=== PATIENT | female | born 1985 | race Caucasian/White ===

== ENCOUNTER 2017-02-12 07:32 | Inpatient (IN) | payer OTHER ==
[2017-02-12] MEDS ORDERED: Sodium Chloride 0.9% 10 ML Syringe FLUSH PRN (07:51)
[2017-02-12] MEDS ORDERED: Nalbuphine 20 MG/1 ML Amp IVPUSH PRN (07:51)
[2017-02-12] MEDS ORDERED: Ondansetron 4 MG/2 ML SDV IVPUSH PRN (07:51)
[2017-02-12] MEDS ORDERED: Lidocaine 1% 50 ML MDV INJECT ONE (07:51)
[2017-02-12] MEDS ORDERED: Oxytocin/Lactated Ringers 10 UNIT/1,000 ML BAG IV SCH (08:00)
[2017-02-12] MEDS: Lactated Ringers 1,000 ML IV SCH ×4 (08:35→23:31)
[2017-02-12] MEDS ORDERED: diphenhydrAMINE 50 MG/ML SDV IVPUSH PRN (08:43)
[2017-02-12] MEDS ORDERED: fentaNYL 100 MCG/2 ML SDV EPIDUR PRN (08:43)
[2017-02-12] MEDS ORDERED: ePHEDrine 50 MG/ML SDV IVPUSH PRN (08:43)
[2017-02-12] MEDS: Bupivacaine/fentaNYL/NS 100 ML Bag EPIDUR SCH ×3 (09:05→23:34)
--- NOTE | 2017-02-12 09:17 | PCM.PREANE ---
Preanesthetic Assessment - Anesthesia/Transfusion/Family Hx Anesthesia History: Prior Anesthesia Without Reaction Family History of Anesthesia Reaction: No Transfusion History: No Prior Transfusion(s) - Review of Systems General: No Symptoms Pulmonary: No Symptoms Cardiovascular: No Symptoms Gastrointestinal: No Symptoms Neurological: No Symptoms Other: Reports: None - Physical Assessment Pulse: 108 O2 Sat by Pulse Oximetry: 100 Respiratory Rate: 16 Blood Pressure: 122/45 Temperature: 36.6 C Vital Signs: Last Vital Signs Temp 36.7 C 02/12/17 07:51 Pulse 108 H 02/12/17 08:30 Resp 16 02/12/17 07:51 BP 138/87 02/12/17 07:51 Pulse Ox 100 02/12/17 07:51 Height: 1.6 m Weight: 78.018 kg ASA Class: 2 Mental Status: Alert & Oriented x3 Airway Class: Mallampati = 1 Dentition: Reports: Normal Dentition Thyro-Mental Finger Breadths: 3 Mouth Opening Finger Breadths: 3 ROM/Head Extension: Full Lungs: Clear to Auscultation, Normal Respiratory Effort Cardiovascular: Regular Rate, Regular Rhythm, No Murmurs - Lab Values: Laboratory Last Values WBC 15.97 K/mm3 (3.98-10.04) H 02/12/17 08:10 RBC 3.86 M/mm3 (3.98-5.22) L 02/12/17 08:10 Hgb 11.7 gm/L (11.2-15.7) 02/12/17 08:10 Hct 34.1 % (34.1-44.9) 02/12/17 08:10 MCV 88.3 fl (79.4-94.8) 02/12/17 08:10 MCH 30.3 pg (25.6-32.2) 02/12/17 08:10 MCHC 34.3 g/dl (32.2-35.5) 02/12/17 08:10 RDW Std Deviation 43.5 fL (36.4-46.3) 02/12/17 08:10 Plt Count 260 K/mm3 (182-369) 02/12/17 08:10 MPV 10.0 fl (9.4-12.3) 02/12/17 08:10 Neut % (Auto) 82.3 % (34.0-71.1) H 02/12/17 08:10 Lymph % (Auto) 10.3 % (19.3-51.7) L 02/12/17 08:10 [place] % (Auto) 5.8 % (4.7-12.5) 02/12/17 08:10 Eos % (Auto) 0.3 (0.7-5.8) L 02/12/17 08:10 Baso % (Auto) 0.1 % (0.1-1.2) 02/12/17 08:10 Neut # (Auto) 13.16 K/mm3 (1.56-6.13) H 02/12/17 08:10 Lymph # (Auto) 1.64 K/mm3 (1.18-3.74) 02/12/17 08:10 [place] # (Auto) 0.92 K/mm3 (0.24-0.36) H 02/12/17 08:10 Eos # (Auto) 0.04 K/mm3 (0.04-0.36) 02/12/17 08:10 Baso # (Auto) 0.02 K/mm3 (0.01-0.08) 02/12/17 08:10 Manual Slide Review Normal smear 02/12/17 08:10 - Allergies Allergies/Adverse Reactions: Allergies Allergy/AdvReac Type Severity Reaction Status Date / Time No Known Allergies Allergy Verified 02/12/17 07:56 - Anesthesia Plan Pre-Op Medication Ordered: None - Acknowledgements Anesthesia Type Planned: Epidural Pt an Appropriate Candidate for the Planned Anesthesia: Yes Alternatives and Risks of Anesthesia Discussed w Pt/Guardian: Yes Pt/Guardian Understands and Agrees with Anesthesia Plan: Yes PreAnesthesia Questionnaire Gastrointestinal History: Reports: GERD - CURRENT (IN HOUSE) MEDS Current Meds: Current Medications Diphenhydramine HCl (Benadryl) 25 mg IVPUSH Q6H PRN PRN Reason: Itching Ephedrine Sulfate (Ephedrine Sulfate) 5 mg IVPUSH ASDIRECTED PRN PRN Reason: HYPOTENTSION Fentanyl (Sublimaze) 100 mcg EPIDUR Q3H PRN PRN Reason: PAIN Last Admin: 02/12/17 09:05 Dose: 100 mcg Fentanyl/Bupivacaine HCl (Fentanyl/Bupivacaine/Ns 2 Mcg-0.125% 100 Ml) 100 ml EPIDUR ASDIRECTED [facility] Last Admin: 02/12/17 09:05 Dose: 100 ml Lactated Ringer's (Ringers, Lactated) 1,000 mls @ 100 mls/hr IV ASDIRECTED [facility] Last Admin: 02/12/17 08:35 Dose: 500 mls/hr Oxytocin/Lactated Ringer's (Pitocin In Lr 10 Units/1,000 Ml) 10 unit in 1,000 mls @ 12 mls/hr IV TITRATE CASSIDY; 2 MUNITS/MIN PRN Reason: Protocol Oxytocin 20 unit/ Lactated (Ringer's) 1,002 mls @ 1,503 mls/hr IV TITRATE C[facility]IDY PRN Reason: 500 MUNITS/MIN Nalbuphine HCl (Nubain) 10 mg IVPUSH Q2H PRN PRN Reason: Pain (moderate 4-6) Ondansetron HCl (Zofran) 4 mg IVPUSH Q4H PRN PRN Reason: Nausea/Vomiting Sodium Chloride (Saline Flush) 10 ml FLUSH ASDIRECTED PRN PRN Reason: Keep Vein Open Discontinued Medications Lidocaine HCl (Xylocaine 1%) 1 ml INJECT ONETIME ONE Stop: 02/12/17 07:52
--- NOTE | 2017-02-12 10:54 | PCM.LDHP ---
<Doreen Lee - Last Filed: 02/12/17 11:15> L&D History of Present Illness - General Date of Service: 02/12/17 Admit Problem/Dx: Patient Status Order with Admit Dx/Problem 02/12/17 07:51 Patient Status [ADT] Routine Admission Diagnosis/Problem Admission Diagnosis/Problem Source of Information: Patient History Limitations: Reports: No Limitations - History of Present Illness Introduction:: Patient is 31 yo , 37 5/7 wks gestation that presents for induction of labor. BRODERICK 02/28/17. GBS-, blood type B+ antibody negative. She had routine care with Dr. Perez. Patient has a history of endometriosis and is currently taking prozac 40 mg once per day for her depression/anxiety. She is in no acute distress. She reports have episodes of diarrhea and vomiting this morning. On examination she has slow capillary refill and her lips are dry and cracked indicating possible dehydration. Pelvic exam revealed 100% effaced, mid- anterior, soft and 3-4 cm dilated cervix. Rest of physical exam was unremarkable Location, : Reports: Uterus - Related Data Allergies/Adverse Reactions: Allergies Allergy/AdvReac Type Severity Reaction Status Date / Time No Known Allergies Allergy Verified 02/12/17 07:56 Home Medications: Home Meds FLUoxetine [PROzac] 40 mg PO BEDTIME 02/12/17 [History] PNV95/Ferrous Fumarate/FA [ Tablet] 1 tab PO DAILY 02/12/17 [History] Past Medical History HEENT History: Reports: Other (See Below) Other HEENT History: glasses Gastrointestinal History: Reports: GERD [employer] History: Reports: Endometriosis, Other (See Below) : 1 Para: 0 ( ) LMP (Approximate): Other OB/BYN History: laparoscopy Psychiatric History: Reports: Anxiety, Depression - Past Surgical History HEENT Surgical History: Reports: None Other Female Surgeries/Procedures: Lap Diag (endometriosis) 2007 Social & Family History - Tobacco Use Smoking Status *Q: Never Smoker Second Hand Smoke Exposure: No - Recreational Drug Use Recreational Drug Use: No H&P Review of Systems - Review of Systems: Review Of Systems: See Below General: Reports: No Symptoms HEENT: Reports: No Symptoms Pulmonary: Reports: No Symptoms Cardiovascular: Reports: No Symptoms Gastrointestinal: Reports: Diarrhea, Vomiting (Reports vomiting twice this morning of 02/12/17) Genitourinary: Reports: No Symptoms Musculoskeletal: Reports: No Symptoms Skin: Reports: No Symptoms Psychiatric: Reports: No Symptoms Neurological: Reports: No Symptoms Hematologic/Lymphatic: Reports: No Symptoms Immunologic: Reports: No Symptoms L&D Exam - Exam Exam: See Below - Vital Signs Vital Signs: Last Vital Signs Temp 97.9 F 02/12/17 09:17 Pulse 108 H 02/12/17 09:17 Resp 16 02/12/17 09:17 BP 122/45 L 02/12/17 09:17 Pulse Ox 100 02/12/17 09:17 Weight: 172 lb - Dangelo Score Dangelo Score Cervix Position: Midposition Dangelo Score Consistency: Soft Dangelo Score Effacement: >80% Dangelo Score Dilation: 3-4 cm Dangelo Score 's Station: -1 ,0 Dangelo Score Total: 10 - Exam General: Alert, Oriented HEENT: Conjunctiva Clear, Mucosa Moist & [place], Posterior Pharynx Clear, Pupils Equal Neck: Supple, Trachea Midline Lungs: Clear to Auscultation, Normal Respiratory Effort Cardiovascular: Regular Rate, Regular Rhythm Rectal Exam: Deferred Genitourinary: Normal external exam, Normal bimanual exam Back Exam: Normal Inspection Extremities: Normal Inspection, Normal Range of Motion, Non-Tender, No Pedal Edema, Slow Capillary Refill Skin: Warm, Dry (Patients lips are dry and cracked), Intact Psychiatric: Alert, Normal Affect, Normal Mood - Patient Data Lab Results Last 24 hrs: Laboratory Results - last 24 hr 02/12/17 Range/Units 08:10 WBC 15.97 H (3.98-10.04) K/mm3 RBC 3.86 L (3.98-5.22) M/mm3 Hgb 11.7 (11.2-15.7) gm/L Hct 34.1 (34.1-44.9) % MCV 88.3 (79.4-94.8) fl MCH 30.3 (25.6-32.2) pg MCHC 34.3 (32.2-35.5) g/dl RDW Std Deviation 43.5 (36.4-46.3) fL Plt Count 260 (182-369) K/mm3 MPV 10.0 (9.4-12.3) fl Neut % (Auto) 82.3 H (34.0-71.1) % Lymph % (Auto) 10.3 L (19.3-51.7) % [place] % (Auto) 5.8 (4.7-12.5) % Eos % (Auto) 0.3 L (0.7-5.8) Baso % (Auto) 0.1 (0.1-1.2) % Neut # (Auto) 13.16 H (1.56-6.13) K/mm3 Lymph # (Auto) 1.64 (1.18-3.74) K/mm3 [place] # (Auto) 0.92 H (0.24-0.36) K/mm3 Eos # (Auto) 0.04 (0.04-0.36) K/mm3 Baso # (Auto) 0.02 (0.01-0.08) K/mm3 Manual Slide Review Normal smear Result Diagrams: 02/12/17 08:10 Problem List Initiated/Reviewed/Updated: No Orders Last 24hrs: Active Orders 24 hr Category Date Time Status Patient Status [ADT] Routine ADT 02/12/17 07:51 Active Activity as Tolerated [RC] PFP Care 02/12/17 07:51 Active Communication Order [RC] ASDIRECTED Care 02/12/17 07:51 Active Communication Order [RC] ASDIRECTED Care 02/12/17 08:43 Active Notify Provider [RC] ASDIRECTED Care 02/12/17 08:43 Active Notify Provider [RC] PFP Care 02/12/17 07:51 Active Notify Provider [RC] PRN Care 02/12/17 07:51 Active Peripheral IV Care [RC] . DIRECTED Care 02/12/17 07:51 Active Pump Management, Intrathecal [RC] ASDIRECTED Care 02/12/17 07:52 Active Vital Signs [RC] PER UNIT ROUTINE Care 02/12/17 07:51 Active Regular Diet [DIET] Diet 02/12/17 Breakfast Active Bupivacaine/fentaNYL/NS [fentaNYL/Bupivacaine/NS 2 MCG- Med 02/12/17 08:45 Active 0.125% 100 ML] 100 ml EPIDUR ASDIRECTED Lactated Ringers [Ringers, Lactated] 1,000 ml Med 02/12/17 08:00 Active IV ASDIRECTED Nalbuphine [Nubain] Med 02/12/17 07:51 Active 10 mg IVPUSH Q2H PRN Ondansetron [Zofran] Med 02/12/17 07:51 Active 4 mg IVPUSH Q4H PRN Oxytocin [Pitocin] 20 unit Med 02/12/17 08:00 Active Lactated Ringers [Ringers, Lactated] 1,000 ml IV TITRATE Oxytocin/Lactated Ringers [Pitocin in LR 10 Units/1,000 Med 02/12/17 08:00 Active ML] 10 unit in 1,000 ml IV TITRATE Sodium Chloride 0.9% [Saline Flush] Med 02/12/17 07:51 Active 10 ml FLUSH ASDIRECTED PRN diphenhydrAMINE [Benadryl] Med 02/12/17 08:43 Active 25 mg IVPUSH Q6H PRN ePHEDrine [ePHEDrine Sulfate] Med 02/12/17 08:43 Active 5 mg IVPUSH ASDIRECTED PRN fentaNYL [Sublimaze] Med 02/12/17 08:43 Active 100 mcg EPIDUR Q3H PRN Electronic Heart Tones Ext w TOCO [WOMSER] Oth 02/12/17 07:51 Ordered Routine Electronic Heart Tones Internal [WOMSER] Per Unit Oth 02/12/17 07:51 Ordered Routine Peripheral IV Insertion Adult [OM.PC] Routine Oth 02/12/17 07:51 Ordered Resuscitation Status Routine Resus Stat 02/12/17 07:51 Ordered Medication Orders Diphenhydramine HCl (Benadryl) 25 mg IVPUSH Q6H PRN PRN Reason: Itching Ephedrine Sulfate (Ephedrine Sulfate) 5 mg IVPUSH ASDIRECTED PRN PRN Reason: HYPOTENTSION Fentanyl (Sublimaze) 100 mcg EPIDUR Q3H PRN PRN Reason: PAIN Last Admin: 02/12/17 09:05 Dose: 100 mcg Fentanyl/Bupivacaine HCl (Fentanyl/Bupivacaine/Ns 2 Mcg-0.125% 100 Ml) 100 ml EPIDUR ASDIRECTED [facility] Last Admin: 02/12/17 09:05 Dose: 100 ml Lactated Ringer's (Ringers, Lactated) 1,000 mls @ 100 mls/hr IV ASDIRECTED [facility] Last Admin: 02/12/17 08:35 Dose: 500 mls/hr Oxytocin/Lactated Ringer's (Pitocin In Lr 10 Units/1,000 Ml) 10 unit in 1,000 mls @ 12 mls/hr IV TITRATE CASSIDY; 2 MUNITS/MIN PRN Reason: Protocol Oxytocin 20 unit/ Lactated (Ringer's) 1,002 mls @ 1,503 mls/hr IV TITRATE CASSIDY PRN Reason: 500 MUNITS/MIN Nalbuphine HCl (Nubain) 10 mg IVPUSH Q2H PRN PRN Reason: Pain (moderate 4-6) Ondansetron HCl (Zofran) 4 mg IVPUSH Q4H PRN PRN Reason: Nausea/Vomiting Sodium Chloride (Saline Flush) 10 ml FLUSH ASDIRECTED PRN PRN Reason: Keep Vein Open Assessment/Plan Comment:: Patient is a 31 yo , 37 5/7 wks gestation that presents for induction of labor. BRODERICK 02/28/17. GBS-, blood type B+ antibody negative. She had routine care with Dr. Perez. Patient has a history of endometriosis and is currently taking prozac 40 mg once per day for her depression/anxiety. She is in no acute distress. She reports have episodes of diarrhea and vomiting this morning. On examination she has slow capillary refill and her lips are dry and cracked indicating possible dehydration. Pelvic exam revealed 100% effaced, mid- anterior, soft and 3-4 cm dilated cervix. Rest of physical exam was unremarkable. Labs reveal elevated WBC count of 15.97 Plan: Continue monitoring Reassess possible dehydration <Mohamud Barnes - Last Filed: 02/12/17 16:38> L&D History of Present Illness - General Admit Problem/Dx: Patient Status Order with Admit Dx/Problem 02/12/17 07:51 Patient Status [ADT] Routine Admission Diagnosis/Problem Admission Diagnosis/Problem Source of Information: Patient History Limitations: Reports: No Limitations - History of Present Illness Introduction:: Seen and examined by me and discussed with student. Past Medical History [employer] History: Reports: Endometriosis, Other (See Below) LMP (Approximate): H&P Review of Systems - Review of Systems: Review Of Systems: See Below General: Reports: No Symptoms HEENT: Reports: No Symptoms Pulmonary: Reports: No Symptoms Cardiovascular: Reports: No Symptoms Gastrointestinal: Reports: No Symptoms Genitourinary: Reports: No Symptoms Musculoskeletal: Reports: No Symptoms Skin: Reports: No Symptoms Psychiatric: Reports: No Symptoms Neurological: Reports: No Symptoms Hematologic/Lymphatic: Reports: No Symptoms Immunologic: Reports: No Symptoms L&D Exam - Exam Exam: See Below - Vital Signs Vital Signs: Last Vital Signs Temp 97.9 F 02/12/17 09:17 Pulse 108 H 02/12/17 09:17 Resp 16 02/12/17 09:17 BP 122/45 L 02/12/17 09:17 Pulse Ox 100 02/12/17 09:17 - OB Specific Fundal Height In cm: 37 Contraction Duration (sec): 30 Contraction Frequency (min): 5 Contraction Intensity: Mild to Moderate Movement: Active Heart Tones: Present Heart Tones per Min: 140 Heart Rate (FHR) Variability: Moderate (6-25 bmp) Presentation: Vertex - Dangelo Score Dangelo Score Cervix Position: Midposition Dangelo Score Consistency: Soft Dangelo Score Effacement: >80% Dangelo Score Dilation: 3-4 cm Dangelo Score 's Station: -1 ,0 Dangelo Score Total: 10 - Exam General: Alert, Oriented HEENT: PERRLA, Conjunctiva Clear, EACs Clear, EOMI, Hearing Intact, Mucosa Moist & [place], Nares Patent, Normal Nasal Septum, Posterior Pharynx Clear, TMs Clear Neck: Supple, Trachea Midline Lungs: Clear to Auscultation, Normal Respiratory Effort Cardiovascular: Regular Rate, Regular Rhythm GI/Abdominal Exam: Normal Bowel Sounds, Soft, Non-Tender Rectal Exam: Deferred Genitourinary: Normal external exam, Normal bimanual exam, Normal speculum exam Back Exam: Normal Inspection Extremities: Normal Inspection, Normal Range of Motion, Non-Tender, No Pedal Edema Skin: Warm, Dry, Intact Neurological: Cranial Nerves Intact, Reflexes Equal Bilateral Psychiatric: Alert, Normal Affect, Normal Mood - Patient Data Lab Results Last 24 hrs: Laboratory Results - last 24 hr 02/12/17 Range/Units 08:10 WBC 15.97 H (3.98-10.04) K/mm3 RBC 3.86 L (3.98-5.22) M/mm3 Hgb 11.7 (11.2-15.7) gm/L Hct 34.1 (34.1-44.9) % MCV 88.3 (79.4-94.8) fl MCH 30.3 (25.6-32.2) pg MCHC 34.3 (32.2-35.5) g/dl RDW Std Deviation 43.5 (36.4-46.3) fL Plt Count 260 (182-369) K/mm3 MPV 10.0 (9.4-12.3) fl Neut % (Auto) 82.3 H (34.0-71.1) % Lymph % (Auto) 10.3 L (19.3-51.7) % [place] % (Auto) 5.8 (4.7-12.5) % Eos % (Auto) 0.3 L (0.7-5.8) Baso % (Auto) 0.1 (0.1-1.2) % Neut # (Auto) 13.16 H (1.56-6.13) K/mm3 Lymph # (Auto) 1.64 (1.18-3.74) K/mm3 [place] # (Auto) 0.92 H (0.24-0.36) K/mm3 Eos # (Auto) 0.04 (0.04-0.36) K/mm3 Baso # (Auto) 0.02 (0.01-0.08) K/mm3 Manual Slide Review Normal smear Result Diagrams: 02/12/17 08:10 - Problem List (1) 37 weeks gestation of SNOMED Code(s): 85668636 ICD Code: Z3A.37 - 37 WEEKS GESTATION OF Status: Acute Current Visit: Yes Problem List Initiated/Reviewed/Updated: No Orders Last 24hrs: Active Orders 24 hr Category Date Time Status Patient Status [ADT] Routine ADT 02/12/17 07:51 Active Activity as Tolerated [RC] PFP Care 02/12/17 07:51 Active Communication Order [RC] ASDIRECTED Care 02/12/17 07:51 Active Communication Order [RC] ASDIRECTED Care 02/12/17 08:43 Active Notify Provider [RC] ASDIRECTED Care 02/12/17 08:43 Active Notify Provider [RC] PFP Care 02/12/17 07:51 Active Notify Provider [RC] PRN Care 02/12/17 07:51 Active Peripheral IV Care [RC] . DIRECTED Care 02/12/17 07:51 Active Pump Management, Intrathecal [RC] ASDIRECTED Care 02/12/17 07:52 Active Vital Signs [RC] PER UNIT ROUTINE Care 02/12/17 07:51 Active Regular Diet [DIET] Diet 02/12/17 Breakfast Active Bupivacaine/fentaNYL/NS [fentaNYL/Bupivacaine/NS 2 MCG- Med 02/12/17 08:45 Active 0.125% 100 ML] 100 ml EPIDUR ASDIRECTED Lactated Ringers [Ringers, Lactated] 1,000 ml Med 02/12/17 08:00 Active IV ASDIRECTED Nalbuphine [Nubain] Med 02/12/17 07:51 Active 10 mg IVPUSH Q2H PRN Ondansetron [Zofran] Med 02/12/17 07:51 Active 4 mg IVPUSH Q4H PRN Oxytocin [Pitocin] 20 unit Med 02/12/17 08:00 Active Lactated Ringers [Ringers, Lactated] 1,000 ml IV TITRATE Oxytocin/Lactated Ringers [Pitocin in LR 10 Units/1,000 Med 02/12/17 08:00 Active ML] 10 unit in 1,000 ml IV TITRATE Sodium Chloride 0.9% [Saline Flush] Med 02/12/17 07:51 Active 10 ml FLUSH ASDIRECTED PRN diphenhydrAMINE [Benadryl] Med 02/12/17 08:43 Active 25 mg IVPUSH Q6H PRN ePHEDrine [ePHEDrine Sulfate] Med 02/12/17 08:43 Active 5 mg IVPUSH ASDIRECTED PRN fentaNYL [Sublimaze] Med 02/12/17 08:43 Active 100 mcg EPIDUR Q3H PRN Electronic Heart Tones Ext w TOCO [WOMSER] Oth 02/12/17 07:51 Ordered Routine Electronic Heart Tones Internal [WOMSER] Per Unit Oth 02/12/17 07:51 Ordered Routine Peripheral IV Insertion Adult [OM.PC] Routine Oth 02/12/17 07:51 Ordered Resuscitation Status Routine Resus Stat 02/12/17 07:51 Ordered Medication Orders Diphenhydramine HCl (Benadryl) 25 mg IVPUSH Q6H PRN PRN Reason: Itching Ephedrine Sulfate (Ephedrine Sulfate) 5 mg IVPUSH ASDIRECTED PRN PRN Reason: HYPOTENTSION Fentanyl (Sublimaze) 100 mcg EPIDUR Q3H PRN PRN Reason: PAIN Last Admin: 02/12/17 09:05 Dose: 100 mcg Fentanyl/Bupivacaine HCl (Fentanyl/Bupivacaine/Ns 2 Mcg-0.125% 100 Ml) 100 ml EPIDUR ASDIRECTED [facility] Last Admin: 02/12/17 09:05 Dose: 100 ml Lactated Ringer's (Ringers, Lactated) 1,000 mls @ 100 mls/hr IV ASDIRECTED [facility] Last Admin: 02/12/17 11:26 Dose: 500 mls/hr Infusion: 02/12/17 10:35 Dose: 500 mls/hr Admin: 02/12/17 08:35 Dose: 500 mls/hr Oxytocin/Lactated Ringer's (Pitocin In Lr 10 Units/1,000 Ml) 10 unit in 1,000 mls @ 12 mls/hr IV TITRATE CASSIDY; 2 MUNITS/MIN PRN Reason: Protocol Oxytocin 20 unit/ Lactated (Ringer's) 1,002 mls @ 1,503 mls/hr IV TITRATE CASSIDY PRN Reason: 500 MUNITS/MIN Nalbuphine HCl (Nubain) 10 mg IVPUSH Q2H PRN PRN Reason: Pain (moderate 4-6) Ondansetron HCl (Zofran) 4 mg IVPUSH Q4H PRN PRN Reason: Nausea/Vomiting Sodium Chloride (Saline Flush) 10 ml FLUSH ASDIRECTED PRN PRN Reason: Keep Vein Open Assessment/Plan Comment:: Seen and examined by me and discussed with student.
--- NOTE | 2017-02-12 15:47 | PCM.SN ---
- Free Text/Narrative Note: 1535 called for bolus level at T11 bolus with 10ml of 25% bupivicaine PF VSS out room at 1549
--- NOTE | 2017-02-12 16:50 | PCM.SN ---
- Free Text/Narrative Note: Cervix is 6 cm dilated with contraction, 90-100% effaced, soft, mid position, vertex at +1 station. Category 1 heart rate.
--- NOTE | 2017-02-12 19:02 | PCM.SN ---
- Free Text/Narrative Note: 6 cm dilated and continue augmentation.
[2017-02-13] MEDS ORDERED: Lidocaine 1% 50 ML MDV ONE (05:15)
[2017-02-13] MEDS ORDERED: Misoprostol 200 MCG Tab ONE (05:27)
--- NOTE | 2017-02-13 05:46 | PCM.DEL ---
L & D Note - General Info Date of Service: 02/13/17 Mother's Due Date: 02/28/17 - Delivery Note Labor: Spontaneous, Augmented by Oxytocin Delivery Outcome: Livebirth (Male liveborn Monday02/13/17 0520 hrs. SETH over midline episiotomy nuchal cord times one compound presentation right hand side head Apgars 4/7/9 at one and 5 and 10 minutes respectively. Weight 3600 g 7 lbs. 15 oz.) Infant Delivery Mode: Spontaneous Presentation: Right Occiput Anterior (BEENA) Nuchal Cord: Present (Tight) Prep: Povidone-Iodine (Betadine Anesthesia Type: Local, Epidural Anesthetic: Lidocaine (Xylocaine) 1% Plain Local Anesthetic Volume: 4cc Amniotic Fluid Description: Clear Episiotomy Type: Midline Laceration: None Suture type: Other (Monocryl) Suture size: 3-0 (2) Placenta: Intact, Spontaneous (Delivered at 0523 hrs. examined intact Pearson discarded) Cord: 3 Vessels Estimated Blood Loss: 500 Resuscitation Needed: Yes [place]: Suctioned, Bulb Syringe, Cathether, Stimulated, Warmed, [place] Used, Warmer Used Provider: Mohamud Barnes Score 1 min: 4 Score 5 min: 7 Score 10 min: 9 - Patient Data Vitals - Most Recent: Last Vital Signs Temp 97.9 F 02/12/17 09:17 Pulse 107 H 02/12/17 17:00 Resp 16 02/12/17 09:17 BP 124/75 02/12/17 17:00 Pulse Ox 100 02/12/17 09:17 Weight - Most Recent: 172 lb Lab Results Last 24 Hours: Laboratory Results - last 24 hr 02/12/17 Range/Units 08:10 WBC 15.97 H (3.98-10.04) K/mm3 RBC 3.86 L (3.98-5.22) M/mm3 Hgb 11.7 (11.2-15.7) gm/L Hct 34.1 (34.1-44.9) % MCV 88.3 (79.4-94.8) fl MCH 30.3 (25.6-32.2) pg MCHC 34.3 (32.2-35.5) g/dl RDW Std Deviation 43.5 (36.4-46.3) fL Plt Count 260 (182-369) K/mm3 MPV 10.0 (9.4-12.3) fl Neut % (Auto) 82.3 H (34.0-71.1) % Lymph % (Auto) 10.3 L (19.3-51.7) % [place] % (Auto) 5.8 (4.7-12.5) % Eos % (Auto) 0.3 L (0.7-5.8) Baso % (Auto) 0.1 (0.1-1.2) % Neut # (Auto) 13.16 H (1.56-6.13) K/mm3 Lymph # (Auto) 1.64 (1.18-3.74) K/mm3 [place] # (Auto) 0.92 H (0.24-0.36) K/mm3 Eos # (Auto) 0.04 (0.04-0.36) K/mm3 Baso # (Auto) 0.02 (0.01-0.08) K/mm3 Manual Slide Review Normal smear Med Orders - Current: Current Medications Diphenhydramine HCl (Benadryl) 25 mg IVPUSH Q6H PRN PRN Reason: Itching Ephedrine Sulfate (Ephedrine Sulfate) 5 mg IVPUSH ASDIRECTED PRN PRN Reason: HYPOTENTSION Fentanyl (Sublimaze) 100 mcg EPIDUR Q3H PRN PRN Reason: PAIN Last Admin: 02/12/17 09:05 Dose: 100 mcg Fentanyl/Bupivacaine HCl (Fentanyl/Bupivacaine/Ns 2 Mcg-0.125% 100 Ml) 100 ml EPIDUR ASDIRECTED CASSIDY Last Admin: 02/12/17 23:34 Dose: 100 ml Lactated Ringer's (Ringers, Lactated) 1,000 mls @ 100 mls/hr IV ASDIRECTED CASSIDY Last Admin: 02/12/17 23:31 Dose: 125 mls/hr Oxytocin/Lactated Ringer's (Pitocin In Lr 10 Units/1,000 Ml) 10 unit in 1,000 mls @ 12 mls/hr IV TITRATE CASSIDY; 2 MUNITS/MIN PRN Reason: Protocol Oxytocin 20 unit/ Lactated (Ringer's) 1,002 mls @ 1,503 mls/hr IV TITRATE CASSIDY PRN Reason: 500 MUNITS/MIN Oxytocin 20 unit/ Lactated (Ringer's) 1,002 mls @ 3 mls/hr IV TITRATE CASSIDY; 1 MUNITS/MIN PRN Reason: Protocol Last Titration: 02/13/17 01:30 Dose: 11 munits/min, 33.06 mls/hr Nalbuphine HCl (Nubain) 10 mg IVPUSH Q2H PRN PRN Reason: Pain (moderate 4-6) Ondansetron HCl (Zofran) 4 mg IVPUSH Q4H PRN PRN Reason: Nausea/Vomiting Sodium Chloride (Saline Flush) 10 ml FLUSH ASDIRECTED PRN PRN Reason: Keep Vein Open Discontinued Medications Lidocaine HCl (Xylocaine 1%) 1 ml INJECT ONETIME ONE Stop: 02/12/17 07:52 Lidocaine HCl (Xylocaine 1%) Confirm Administered Dose 50 ml .ROUTE .STK-MED ONE Stop: 02/13/17 05:16 Misoprostol (Cytotec) Confirm Administered Dose 600 mcg .ROUTE .STK-MED ONE Stop: 02/13/17 05:28 - Problem List & Annotations (1) 37 weeks gestation of SNOMED Code(s): 95757278 Code(s): Z3A.37 - 37 WEEKS GESTATION OF Status: Acute Current Visit: Yes (2) First degree laceration of perineum, delivered, current hospitalization SNOMED Code(s): 518291850 Code(s): O70.0 - FIRST DEGREE PERINEAL LACERATION DURING DELIVERY Status: Acute Current Visit: Yes (3) Compound presentation, delivered, current hospitalization SNOMED Code(s): 839746562 Code(s): O32.6XX0 - MATERNAL CARE FOR COMPOUND PRESENTATION, UNSP Status: Acute Current Visit: Yes - Problem List Review Problem List Initiated/Reviewed/Updated: No - My Orders Last 24 Hours: My Active Orders 02/12/17 07:51 Patient Status [ADT] Routine Activity as Tolerated [RC] PFP Communication Order [RC] ASDIRECTED Notify Provider [RC] PFP Notify Provider [RC] PRN Peripheral IV Care [RC] . DIRECTED Vital Signs [RC] PER UNIT ROUTINE Nalbuphine [Nubain] 10 mg IVPUSH Q2H PRN Ondansetron [Zofran] 4 mg IVPUSH Q4H PRN Sodium Chloride 0.9% [Saline Flush] 10 ml FLUSH ASDIRECTED PRN Electronic Heart Tones Ext w TOCO [WOMSER] Routine Electronic Heart Tones Internal [WOMSER] Per Unit Routine Peripheral IV Insertion Adult [OM.PC] Routine Resuscitation Status Routine 02/12/17 07:52 Pump Management, Intrathecal [RC] ASDIRECTED 02/12/17 08:00 Lactated Ringers [Ringers, Lactated] 1,000 ml IV ASDIRECTED Oxytocin [Pitocin] 20 unit Lactated Ringers [Ringers, Lactated] 1,000 ml IV TITRATE Oxytocin/Lactated Ringers [Pitocin in LR 10 Units/1,000 ML] 10 unit in 1,000 ml IV TITRATE 02/12/17 20:00 Oxytocin [Pitocin] 20 unit Lactated Ringers [Ringers, Lactated] 1,000 ml IV TITRATE 02/12/17 Breakfast Regular Diet [DIET] - Plan Plan:: Seen and examined by me and discussed with student.
[2017-02-13] MEDS ORDERED: Ibuprofen 600 MG Tab PO PRN (05:50)
[2017-02-13] MEDS ORDERED: Lanolin 100% Cream 7 GM Tube TOP PRN (05:50)
[2017-02-13] MEDS ORDERED: Benzocaine/Menthol 20%-0.5% Spray 56 GM Canister TOP PRN (05:50)
[2017-02-13] MEDS ORDERED: Witch Hazel Medicated Pads 100/Jar TOP PRN (05:50)
--- NOTE | 2017-02-13 07:33 | PCM48HPAN ---
Post Anesthesia Note - EVALUATION WITHIN 48HRS OF ANESTHETIC Vital Signs in Normal Range: Yes Patient Participated in Evaluation: Yes Respiratory Function Stable: Yes Airway Patent: Yes Cardiovascular Function Stable: Yes Hydration Status Stable: Yes Pain Control Satisfactory: Yes Nausea and Vomiting Control Satisfactory: Yes Mental Status Recovered: Yes
[2017-02-13] MEDS: Prenatal Multivitamin with Calcium/Folic Acid/Iron Tab PO SCH (08:59)
[2017-02-13] MEDS: FLUoxetine 20 MG Cap PO SCH (21:12)
[2017-02-13] MEDS: Acetaminophen 325 MG Tab PO PRN (21:13)
[2017-02-13] MEDS ORDERED: Bupivacaine 0.25% 10 ML SDV ONE (22:22)
[2017-02-14] MEDS: Prenatal Multivitamin with Calcium/Folic Acid/Iron Tab PO SCH (09:45)
[2017-02-14] MEDS: Docusate Sodium 100 MG Cap PO PRN (09:45)
[2017-02-14] MEDS: Acetaminophen 325 MG Tab PO PRN ×2 (09:49→21:50)
--- NOTE | 2017-02-14 10:41 | PCM.SN ---
- Free Text/Narrative Note: Patient is afebrile chest clear no abnormal heart sounds. Abdomen is soft uterus involuting normally at U -1. No heavy vaginal bleeding cramping. Probably home tomorrow.
[2017-02-14] MEDS: FLUoxetine 20 MG Cap PO SCH (21:48)
--- NOTE | 2017-02-15 10:02 | PCM.SN ---
- Free Text/Narrative Note: Post Progress Note PPD # 2 Subjective: Doing well overall. Ambulating without difficulty. Lochia minimal. Voiding without difficulty. Tolerating regular diet. Pain controlled with oral medications. Breast feeding with minimal difficulty. Objective: Vitals: Last Vital Signs Temp 36.6 C 02/15/17 03:08 Pulse 71 02/15/17 03:08 Resp 17 02/15/17 03:08 BP 112/88 02/15/17 03:08 Pulse Ox 99 02/15/17 03:08 Physical Exam General: Alert and oriented, no acute distress Lungs: Clear to auscultation bilaterally Heart: Regular rate and rhythm Abdomen: Soft, minimal appropriate tenderness, non-distended, fundus midline, nontender, and below the umbilicus Extremities: No edema ASSESSMENT: 31-year-old female G 1 P 1001 s/p normal vaginal delivery PPD #2, complicated by history of anxiety/depression on medication, history of endometriosis, compound presentation during delivery with hand near the face, and midline episiotomy PLAN: Doing well Breast feeding with minimal difficulty. Assist as needed Lochia minimal. Continue to monitor for appropriate lochia. Continue routine care Anticipate discharge home today Hamzah Avina MD 10:00 AM 02/15/17
--- NOTE | 2017-02-15 10:06 | PCM.DCSUM1 ---
Discharge Summary - Hospital Course Free Text/Narrative:: Labor: Spontaneous, Augmented by Oxytocin Delivery Outcome: Livebirth (Male liveborn Monday02/13/17 0520 hrs. SETH over midline episiotomy nuchal cord times one compound presentation right hand side head Apgars 4/7/9 at one and 5 and 10 minutes respectively. Weight 3600 g 7 lbs. 15 oz.) Infant Delivery Mode: Spontaneous Presentation: Right Occiput Anterior (BEENA) Nuchal Cord: Present (Tight) Prep: Povidone-Iodine (Betadine Anesthesia Type: Local, Epidural Anesthetic: Lidocaine (Xylocaine) 1% Plain Local Anesthetic Volume: 4cc Amniotic Fluid Description: Clear Episiotomy Type: Midline Laceration: None Suture type: Other (Monocryl) Suture size: 3-0 (2) Placenta: Intact, Spontaneous (Delivered at 0523 hrs. examined intact Pearson discarded) Cord: 3 Vessels Estimated Blood Loss: 500 Resuscitation Needed: Yes [place]: Suctioned, Bulb Syringe, Cathether, Stimulated, Warmed, [place] Used, Warmer Used Provider: Mohamud Barnes Score 1 min: 4 Score 5 min: 7 Score 10 min: 9 HPI Initial Comments: Labor: Spontaneous, Augmented by Oxytocin Delivery Outcome: Livebirth (Male liveborn Monday02/13/17 0520 hrs. SETH over midline episiotomy nuchal cord times one compound presentation right hand side head Apgars 4/7/9 at one and 5 and 10 minutes respectively. Weight 3600 g 7 lbs. 15 oz.) Infant Delivery Mode: Spontaneous Presentation: Right Occiput Anterior (BEENA) Nuchal Cord: Present (Tight) Prep: Povidone-Iodine (Betadine Anesthesia Type: Local, Epidural Anesthetic: Lidocaine (Xylocaine) 1% Plain Local Anesthetic Volume: 4cc Amniotic Fluid Description: Clear Episiotomy Type: Midline Laceration: None Suture type: Other (Monocryl) Suture size: 3-0 (2) Placenta: Intact, Spontaneous (Delivered at 0523 hrs. examined intact Pearson discarded) Cord: 3 Vessels Estimated Blood Loss: 500 Resuscitation Needed: Yes [place]: Suctioned, Bulb Syringe, Cathether, Stimulated, Warmed, [place] Used, Warmer Used Provider: Mohamud Barnes Score 1 min: 4 Score 5 min: 7 Score 10 min: 9 Brief History: Labor: Spontaneous, Augmented by Oxytocin. Delivery Outcome: Livebirth (Male liveborn Monday02/13/17 0520 hrs. SETH over midline episiotomy nuchal cord times one compound presentation right hand side head Apgars 4/7/9 at one and 5 and 10 minutes respectively. Weight 3600 g 7 lbs. 15 oz.). Infant Delivery Mode: Spontaneous. Presentation: Right Occiput Anterior (BEENA). Nuchal Cord: Present (Tight). Prep: Povidone-Iodine (Betadine. Anesthesia Type : Local, Epidural. Anesthetic: Lidocaine (Xylocaine) 1% Plain. Local Anesthetic Volume: 4cc. Amniotic Fluid Description: Clear. Episiotomy Type: Midline. Laceration: None. Suture type: Other (Monocryl). Suture size: 3-0 ( 2). Placenta: Intact, Spontaneous (Delivered at 0523 hrs. examined intact Pearson discarded). Cord: 3 Vessels. Estimated Blood Loss: 500. Resuscitation Needed: Yes. : Suctioned, Bulb Syringe, Cathether, Stimulated, Warmed, [place] Used, Warmer Used. Provider: Mohamud Barnes. Score 1 min: 4. Score 5 min: 7. Score 10 min: 9 - Discharge Data Discharge Date: 02/15/17 Discharge Disposition: Home, Self-Care 01 Condition: Good - Discharge Diagnosis/Problem(s) (1) (normal spontaneous vaginal delivery) SNOMED Code(s): 06789320 ICD Code: O80 - ENCOUNTER FOR FULL-TERM UNCOMPLICATED DELIVERY Status: Acute (2) History of anxiety disorder SNOMED Code(s): 631170215 ICD Code: Z86.59 - PERSONAL HISTORY OF OTHER MENTAL AND BEHAVIORAL DISORDERS Status: Acute (3) History of endometriosis SNOMED Code(s): 039662191 ICD Code: Z87.42 - PERSONAL HISTORY OF OTH DISEASES OF THE FEMALE GENITAL TRACT Status: Acute (4) 37 weeks gestation of SNOMED Code(s): 04345139 ICD Code: Z3A.37 - 37 WEEKS GESTATION OF Status: Acute (5) Compound presentation, delivered, current hospitalization SNOMED Code(s): 613999870 ICD Code: O32.6XX0 - MATERNAL CARE FOR COMPOUND PRESENTATION, UNSP Status: Acute (6) First degree laceration of perineum, delivered, current hospitalization SNOMED Code(s): 782576104 ICD Code: O70.0 - FIRST DEGREE PERINEAL LACERATION DURING DELIVERY Status: Acute - Patient Summary/Data Operative Procedure(s) Performed: Midline episiotomy with repair of first- degree laceration Complications: Compound presentation during labor, ended with normal vaginal delivery Consults: None Hospital Course: Labor: Spontaneous, Augmented by Oxytocin Delivery Outcome: Livebirth (Male liveborn Monday02/13/17 0520 hrs. SETH over midline episiotomy nuchal cord times one compound presentation right hand side head Apgars 4/7/9 at one and 5 and 10 minutes respectively. Weight 3600 g 7 lbs. 15 oz.) Infant Delivery Mode: Spontaneous Presentation: Right Occiput Anterior (BEENA) Nuchal Cord: Present (Tight) Prep: Povidone-Iodine (Betadine Anesthesia Type: Local, Epidural Anesthetic: Lidocaine (Xylocaine) 1% Plain Local Anesthetic Volume: 4cc Amniotic Fluid Description: Clear Episiotomy Type: Midline Laceration: None Suture type: Other (Monocryl) Suture size: 3-0 (2) Placenta: Intact, Spontaneous (Delivered at 0523 hrs. examined intact Pearson discarded) Cord: 3 Vessels Estimated Blood Loss: 500 Resuscitation Needed: Yes : Suctioned, Bulb Syringe, Cathether, Stimulated, Warmed, [place] Used, Warmer Used Provider: Mohamud Barnes Score 1 min: 4 Score 5 min: 7 Score 10 min: 9 Patient was doing well on day #1 and meeting postoperative milestones including ambulating, tolerating regular diet, voiding without difficulty and her pain was well controlled with oral medications. She is breast-feeding without difficulty. On day #2 she continued be doing well and meeting all milestones. She desired to be discharged home in the morning of day #2. She was discharged home and will follow- up with Dr. Perez in 6 weeks or earlier as needed. - Patient Instructions Diet: Regular Diet as Tolerated Activity: As Tolerated Activity, Other: Nothing in the vagina for 6 weeks Driving: May Drive Today Showering/Bathing: May Shower, No Tub Bathing/Swimming Notify Provider of: Fever, Increased Pain, Swelling and Redness, Drainage, Nausea and/or Vomiting - Discharge Plan Home Medications: Home Meds FLUoxetine [PROzac] 40 mg PO BEDTIME 02/12/17 [History] PNV95/Ferrous Fumarate/FA [ Tablet] 1 tab PO DAILY 02/12/17 [History] Acetaminophen [Tylenol] 650 mg PO Q4H PRN tablet 02/15/17 [Rx] Benzocaine/Menthol [Dermoplast Pain Relief [place]] 1 spray TOP ASDIRECTED PRN canister 02/15/17 [Rx] Docusate Sodium [Colace] 100 mg PO BID PRN cap 02/15/17 [Rx] Ibuprofen [IJD: Ibuprofen] 600 mg PO Q6H PRN tablet 02/15/17 [Rx] Lanolin [Lansinoh HPA] 1 applic TOP ASDIRECTED PRN tube 02/15/17 [Rx] Witch Viviana [Tucks] 1 pad TOP ASDIRECTED PRN pad 02/15/17 [Rx] Patient Handouts: Home Care Instructions for Mom Referrals: Lisa Perez MD [Primary Care Provider] - (Follow-up in 6 weeks for visit.) - Discharge Summary/Plan Comment DC Time >30 min.: No - Patient Data Vitals - Most Recent: Last Vital Signs Temp 36.6 C 02/15/17 03:08 Pulse 71 02/15/17 03:08 Resp 17 02/15/17 03:08 BP 112/88 02/15/17 03:08 Pulse Ox 99 02/15/17 03:08 Weight - Most Recent: 78.018 kg I&O - Last 24 hours: Intake & Output 02/14/17 02/15/17 02/15/17 22:59 06:59 14:59 Intake Total 620 Balance 620 Med Orders - Current: Current Medications Acetaminophen (Tylenol) 650 mg PO Q4H PRN PRN Reason: mild pain or fever Last Admin: 02/14/17 21:50 Dose: 650 mg Benzocaine/Menthol (Dermoplast Pain Relief [place]) 0 gm TOP ASDIRECTED PRN PRN Reason: Perineal Comfort Measure Last Admin: 02/13/17 08:59 Dose: 1 spray Docusate Sodium (Colace) 100 mg PO BID PRN PRN Reason: Constipation Last Admin: 02/14/17 09:45 Dose: 100 mg Emollient Ointment (Lansinoh Hpa) 0 gm TOP ASDIRECTED PRN PRN Reason: Sore Nipples Fluoxetine HCl (Prozac) 40 mg PO BEDTIME CASSIDY Last Admin: 02/14/17 21:48 Dose: 40 mg Ibuprofen (Motrin) 600 mg PO Q4H PRN PRN Reason: Mild pain or fever Prenat Multivit/Incident Response Coordinator/Iron/Folic Ac ( Plus Iron) 1 each PO DAILY CASSIDY Last Admin: 02/14/17 09:45 Dose: 1 each Witch Viviana (Tucks) 1 pad TOP ASDIRECTED PRN PRN Reason: Hemorrhoid pain Last Admin: 02/13/17 08:59 Dose: 1 pad Discontinued Medications Bupivacaine HCl (Sensorcaine-Mpf 0.25%) 20 ml .ROUTE .[facility]-MED ONE Stop: 02/13/17 22:23 Diphenhydramine HCl (Benadryl) 25 mg IVPUSH Q6H PRN PRN Reason: Itching Ephedrine Sulfate (Ephedrine Sulfate) 5 mg IVPUSH ASDIRECTED PRN PRN Reason: HYPOTENTSION Fentanyl (Sublimaze) 100 mcg EPIDUR Q3H PRN PRN Reason: PAIN Last Admin: 02/12/17 09:05 Dose: 100 mcg Fentanyl/Bupivacaine HCl (Fentanyl/Bupivacaine/Ns 2 Mcg-0.125% 100 Ml) 100 ml EPIDUR ASDIRECTED CASSIDY Last Admin: 02/12/17 23:34 Dose: 100 ml Lactated Ringer's (Ringers, Lactated) 1,000 mls @ 100 mls/hr IV ASDIRECTED CASSIDY Last Admin: 02/12/17 23:31 Dose: 125 mls/hr Oxytocin/Lactated Ringer's (Pitocin In Lr 10 Units/1,000 Ml) 10 unit in 1,000 mls @ 12 mls/hr IV TITRATE CASSIDY; 2 MUNITS/MIN PRN Reason: Protocol Oxytocin 20 unit/ Lactated (Ringer's) 1,002 mls @ 1,503 mls/hr IV TITRATE CASSIDY PRN Reason: 500 MUNITS/MIN Oxytocin 20 unit/ Lactated (Ringer's) 1,002 mls @ 3 mls/hr IV TITRATE CASSIDY; 1 MUNITS/MIN PRN Reason: Protocol Last Titration: 02/13/17 03:30 Dose: 15 munits/min, 45.09 mls/hr Lidocaine HCl (Xylocaine 1%) 1 ml INJECT ONETIME ONE Stop: 02/12/17 07:52 Last Admin: 02/13/17 06:05 Dose: Not Given Lidocaine HCl (Xylocaine 1%) Confirm Administered Dose 50 ml .ROUTE .STK-MED ONE Stop: 02/13/17 05:16 Last Admin: 02/13/17 06:05 Dose: 50 ml Misoprostol (Cytotec) Confirm Administered Dose 600 mcg .ROUTE .STK-MED ONE Stop: 02/13/17 05:28 Last Admin: 02/13/17 06:01 Dose: 600 mcg Nalbuphine HCl (Nubain) 10 mg IVPUSH Q2H PRN PRN Reason: Pain (moderate 4-6) Ondansetron HCl (Zofran) 4 mg IVPUSH Q4H PRN PRN Reason: Nausea/Vomiting Sodium Chloride (Saline Flush) 10 ml FLUSH ASDIRECTED PRN PRN Reason: Keep Vein Open *Q Meaningful Use (DIS) - VTE *Q VTE Criteria *Q: - Stroke *Q Stroke Criteria *Q: - AMI *Q AMI Criteria *Q:
[2017-02-15] MEDS: Docusate Sodium 100 MG Cap PO PRN (10:53)
[2017-02-15] MEDS: Prenatal Multivitamin with Calcium/Folic Acid/Iron Tab PO SCH (10:53)
== END 2017-02-15 12:00 | disposition home or self-care (01) | DRG 775 ==
LOC: JD.OBCHECK 07:32 → JD.OB 07:51 → OBSVTOIN 02-13 05:20 → JD.OB 02-13 05:20
PROVIDERS: ADMIT Obstetrics & Gynecology; ATTEND Obstetrics & Gynecology
PROC: 10E0XZZ Delivery of Products of Conception, External Approach (ICD-10-PCS; principal; 2017-02-13)
PROC: 10907ZC Drainage of Amniotic Fluid, Therapeutic from Products of Conception, Via Natural or Artificial Opening (ICD-10-PCS; 2017-02-13)
PROC: 0W8NXZZ Division of Female Perineum, External Approach (ICD-10-PCS; 2017-02-13)
PROC: 00HU33Z Insertion of Infusion Device into Spinal Canal, Percutaneous Approach (ICD-10-PCS; 2017-02-13)
PROC: 3E0R3BZ Introduction of Anesthetic Agent into Spinal Canal, Percutaneous Approach (ICD-10-PCS; 2017-02-13)
DX: O99.344 Other mental disorders complicating childbirth (principal); F41.8 Other specified anxiety disorders; O70.9 Perineal laceration during delivery, unspecified; O69.81X0 Labor and delivery complicated by cord around neck, without compression, not applicable or unspecified; Z3A.38 38 weeks gestation of pregnancy; Z37.0 Single live birth; O32.6XX0 Maternal care for compound presentation, not applicable or unspecified
CPT/HCPCS: 01967; 36415; 51702; 59300; 59409; 85025; A9270-GY; J2590; J3010; J7120

== ENCOUNTER 2023-12-19 08:01 | Day surgery (SDC) | payer BC ==
[2023-12-19] MEDS: Lactated Ringers 1,000 ML IV SCH (06:45)
[2023-12-19 07:04] LABS: BASOPHILS ABSOLUTE AUTO 0.1 K/mm3 (0.0-0.2); BASOPHILS PERCENT AUTO 0.8 % (0.0-1.0); EOSINOPHILS ABSOLUTE AUTO 0.1 K/mm3 (0.0-0.4); EOSINOPHILS PERCENT AUTO 1.7 % (0.0-6.0); HEMATOCRIT 40.9 % (37.0-47.0); HEMOGLOBIN 13.3 gm/dl (12.0-16.0); IMMATURE GRAN ABSOLUTE AUTO 0.02 K/mm3 (0.00-0.05); IMMATURE GRAN PERCENT AUTO 0.3 % (0.0-0.4); LYMPHOCYTES ABSOLUTE AUTO 1.9 K/mm3 (1.0-4.8); LYMPHOCYTES PERCENT AUTO 23.8 % (24.0-44.0); MEAN CORPUSCULAR HEMOGLOBIN 29.7 pg (28.0-32.0); MEAN CORPUSCULAR HGB CONC 32.5 g/dl (32.0-36.0); MEAN CORPUSCULAR VOLUME 91.3 fl (83.0-99.0); MEAN PLATELET VOLUME 9.8 fl (9.4-12.3); MONOCYTES ABSOLUTE AUTO 0.6 K/mm3 (0.0-0.8); MONOCYTES PERCENT AUTO 7.3 % (0.0-8.0); NEUTROPHILS ABSOLUTE AUTO 5.2 K/mm3 (1.8-7.7); NEUTROPHILS PERCENT AUTO 66.1 % (41.0-71.0); PLATELET COUNT,PLT 256 K/mm3 (150-400); RED BLOOD CELL COUNT 4.48 M/mm3 (4.10-5.30); WHITE BLOOD CELL COUNT,WBC 7.82 K/mm3 (3.9-11.3)
[2023-12-19] MEDS: Scopalamine 1mg/3day Transdermal Patch TOP ONE (07:28)
[2023-12-19 07:36] LABS: ANION GAP 16.5 (5-15); BUN/CREATININE RATIO 8.2 (14-18); CALCIUM 9.5 mg/dL (8.5-10.1); CREATININE 1.1 mg/dL (0.55-1.02); EST CRCL DRUG DOSING (CG) 58.26 mL/min; POTASSIUM,K 3.5 mEq/L (3.5-5.1)
[2023-12-19] MEDS: Bupivacaine 0.5% 30 ML SDV ONE (08:00)
[~2023-12-19 08:01] MED LIST: Dexamethasone 4 MG/ML 5 ML MDV ONE; HYDROmorphone 0.5 MG/0.5 ML Syringe IVPUSH PRN; Midazolam 1 MG/ML 2 ML SDV ONE; Ondansetron 4 MG/2 ML SDV IVPUSH PRN; Ondansetron 4 MG/2 ML SDV ONE; Propofol 200 MG/20 ML SDV ONE; Rocuronium 50 MG/5 ML Vial ONE; Sodium Chloride 0.9% 10 ML Syringe FLUSH PRN; Sodium Chloride 0.9% 10 ML Syringe FLUSH SCH; ceFAZolin 2 GM Vial ONE; fentaNYL 100 MCG/2 ML SDV IVPUSH PRN; fentaNYL 100 MCG/2 ML SDV ONE
[2023-12-19] MEDS ORDERED: dexmedeTOMIDine HCl 200 MCG/2 ML SDV ONE (08:03)
[2023-12-19] MEDS: Bupivacaine 0.25% 10 ML SDV ONE (08:15)
[2023-12-19] MEDS: EPINEPHrine 1 MG/ML SDV ONE (08:15)
[2023-12-19] MEDS ORDERED: Sugammadex Sodium 200 MG/2 ML VIAL IV ONE (08:24)
[2023-12-19] MEDS ORDERED: fentaNYL 100 MCG/2 ML SDV ONE (08:28)
[2023-12-19] MEDS ORDERED: Propofol 200 MG/20 ML SDV ONE (08:54)
[2023-12-19] MEDS: Acetaminophen/oxyCODONE 325-5 MG Tab PO ONE (10:45)
== END 2023-12-19 11:25 ==
LOC: JD.SDS 08:01
PROVIDERS: ATTEND Obstetrics & Gynecology
DX: N83.8 Other noninflammatory disorders of ovary, fallopian tube and broad ligament (principal); F41.8 Other specified anxiety disorders; Z88.5 Allergy status to narcotic agent; Z79.899 Other long term (current) drug therapy
CPT/HCPCS: 36415; 58552; 80048; 81025; 85025; 86850; 86900; 86901; A9270; J0171; J0665; J0690; J1100; J2250; J2405; J2704; J3010; J3490; J7120; 00944

== ENCOUNTER 2023-12-26 13:20 | Emergency (ER) | payer BC ==
[2023-12-26 14:08] LABS: BASOPHILS PERCENT AUTO 0.4 % (0.0-1.0); EOSINOPHILS ABSOLUTE AUTO 0.1 K/mm3 (0.0-0.4); EOSINOPHILS PERCENT AUTO 0.7 % (0.0-6.0); HEMATOCRIT 38.8 % (37.0-47.0); HEMOGLOBIN 12.8 gm/dl (12.0-16.0); IMMATURE GRAN ABSOLUTE AUTO 0.09 K/mm3 (0.00-0.05); IMMATURE GRAN PERCENT AUTO 0.9 % (0.0-0.4); LYMPHOCYTES ABSOLUTE AUTO 1.3 K/mm3 (1.0-4.8); MEAN CORPUSCULAR HEMOGLOBIN 29.2 pg (28.0-32.0); MEAN CORPUSCULAR VOLUME 88.6 fl (83.0-99.0); MEAN PLATELET VOLUME 9.6 fl (9.4-12.3); MONOCYTES ABSOLUTE AUTO 0.7 K/mm3 (0.0-0.8); MONOCYTES PERCENT AUTO 6.8 % (0.0-8.0); NEUTROPHILS ABSOLUTE AUTO 7.9 K/mm3 (1.8-7.7); NEUTROPHILS PERCENT AUTO 78.2 % (41.0-71.0); PLATELET COUNT,PLT 246 K/mm3 (150-400); RED BLOOD CELL COUNT 4.38 M/mm3 (4.10-5.30); WHITE BLOOD CELL COUNT,WBC 10.11 K/mm3 (3.9-11.3)
[2023-12-26 14:30] LABS: INR 1.09; PROTHROMBIN TIME 11.5 SECONDS (9.7-12.0)
[2023-12-26 14:31] LABS: PTT,PARTIAL THROMBOPLSTIN TIME 24.6 SECONDS (21.7-31.4)
[2023-12-26 14:37] LABS: A/G RATIO 1.3 (1-2); ALBUMIN 4.2 g/dl (3.4-5.0); BILIRUBIN TOTAL 0.5 mg/dL (0.2-1.0); BUN/CREATININE RATIO 6.7 (14-18); CALCIUM 9.2 mg/dL (8.5-10.1); CREATININE 0.9 mg/dL (0.55-1.02); EST CRCL DRUG DOSING (CG) 70.94 mL/min; PROTEIN TOTAL,TP 7.5 g/dl (6.4-8.2)
[2023-12-26] MEDS: Ketorolac 60 MG/2 ML SDV IM ONE (14:49)
[2023-12-26 15:27] LABS: APPEARANCE,URINE CLEAR (Clear); BILIRUBIN,URINE NEGATIVE (Negative); COLOR,URINE YELLOW (Yellow); GLUCOSE,URINE NEGATIVE (Negative); KETONES,URINE 1+ (Negative); LEUKOCYTE ESTERASE,URINE 2+ (Negative); NITRITE,URINE NEGATIVE (Negative); OCCULT BLOOD,URINE 2+ (Negative); PH,URINE 8.5 (5.0-8.0); PROTEIN,URINE TRACE (Negative); UROBILINOGEN,URINE 0.2 (0.2-1.0)
[2023-12-26 15:36] LABS: BACTERIA,URINE MODERATE /hpf (FEW)
[2023-12-26 15:37] LABS: MUCUS,URINE MODERATE /hpf (FEW)
[2023-12-26] MEDS: Iopamidol 755 Mg/ML 100 ML Bottle IVPUSH ONE (16:27)
[2023-12-26] MEDS: Sodium Chloride 0.9% 45 ML IV SCH (16:27)
[2023-12-26] MEDS: cefTRIAXone 2 GM in Sodium Chloride 0.9% 100 ML IV ONE (17:10)
[2023-12-26] MEDS: Ondansetron 4 MG/2 ML SDV IVPUSH ONE (18:13)
== END 2023-12-26 18:45 | disposition home or self-care (01) ==
LOC: JD.ED 13:20
DX: R07.2 Precordial pain (principal); J43.9 Emphysema, unspecified; R79.89 Other specified abnormal findings of blood chemistry; J45.909 Unspecified asthma, uncomplicated; Z88.5 Allergy status to narcotic agent; Z79.899 Other long term (current) drug therapy
CPT/HCPCS: 36415; 71045; 71275; 80053; 81001; 83735; 83880; 84484; 85025; 85379; 85610; 85730; 87086; 87635; 93005; 96365; 96372; 96375; 99285; J0696; J1885; J2405; J3490; Q9967; 93010; 99284; U0002

== ENCOUNTER 2024-03-08 09:59 | Emergency (ER) | payer BC ==
[2024-03-08 11:22] LABS: APPEARANCE,URINE SLT CLOUDY (Clear); BILIRUBIN,URINE 1+ (Negative); COLOR,URINE YELLOW (Yellow); GLUCOSE,URINE NEGATIVE (Negative); KETONES,URINE 2+ (Negative); LEUKOCYTE ESTERASE,URINE NEGATIVE (Negative); NITRITE,URINE NEGATIVE (Negative); OCCULT BLOOD,URINE 2+ (Negative); PROTEIN,URINE TRACE (Negative); UROBILINOGEN,URINE 0.2 (0.2-1.0)
[2024-03-08 11:28] LABS: BASOPHILS PERCENT AUTO 0.4 % (0.0-1.0); EOSINOPHILS ABSOLUTE AUTO 0.1 K/mm3 (0.0-0.4); HEMATOCRIT 38.9 % (37.0-47.0); HEMOGLOBIN 13.1 gm/dl (12.0-16.0); IMMATURE GRAN ABSOLUTE AUTO 0.04 K/mm3 (0.00-0.05); IMMATURE GRAN PERCENT AUTO 0.4 % (0.0-0.4); LYMPHOCYTES ABSOLUTE AUTO 0.7 K/mm3 (1.0-4.8); LYMPHOCYTES PERCENT AUTO 6.8 % (24.0-44.0); MEAN CORPUSCULAR HEMOGLOBIN 29.2 pg (28.0-32.0); MEAN CORPUSCULAR HGB CONC 33.7 g/dl (32.0-36.0); MEAN CORPUSCULAR VOLUME 86.6 fl (83.0-99.0); MEAN PLATELET VOLUME 10.2 fl (9.4-12.3); MONOCYTES ABSOLUTE AUTO 0.6 K/mm3 (0.0-0.8); NEUTROPHILS ABSOLUTE AUTO 8.9 K/mm3 (1.8-7.7); NEUTROPHILS PERCENT AUTO 85.4 % (41.0-71.0); RED BLOOD CELL COUNT 4.49 M/mm3 (4.10-5.30); WHITE BLOOD CELL COUNT,WBC 10.42 K/mm3 (3.9-11.3)
[2024-03-08 11:29] LABS: BARBITURATE SCREEN,URINE NEGATIVE (CUTOFF=200); BENZODIAZEPINES SCREEN,URINE PRESUMPTIVE POSITIVE (CUTOFF=150); BUPRENORPHINE SCREEN,URINE NEGATIVE (CUTOFF=10); METHADONE SCREEN, URINE NEGATIVE (CUTOFF=200); METHAMPHETAMINES SCREEN, URINE NEGATIVE (CUTOFF=500); OXYCODONE SCREEN,URINE NEGATIVE (CUT0FF=100); THC SCREEN,URINE 20 NG/ML NEGATIVE (CUTOFF=50)
[2024-03-08 11:31] LABS: PLATELET COUNT,PLT 160 K/mm3 (150-400)
[2024-03-08 11:31] LABS: AMPHETAMINES SCREEN, URINE NEGATIVE (CUTOFF=500)
[2024-03-08 11:52] LABS: BACTERIA,URINE FEW /hpf (FEW); MUCUS,URINE MANY /hpf (FEW); RBC,URINE 20-30 /hpf (0-5); WBC,URINE 0-5 /hpf (0-5)
[2024-03-08 12:00] LABS: A/G RATIO 1.2 (1-2); ALBUMIN 4.3 g/dl (3.4-5.0); ANION GAP 15.7 (5-15); BILIRUBIN TOTAL 0.5 mg/dL (0.2-1.0); BUN/CREATININE RATIO 12.5 (14-18); CALCIUM 9.2 mg/dL (8.5-10.1); CREATININE 0.8 mg/dL (0.55-1.02); EST CRCL DRUG DOSING (CG) 79.5 mL/min; MAGNESIUM 1.8 mg/dL (1.8-2.4); POTASSIUM,K 3.7 mEq/L (3.5-5.1); PROTEIN TOTAL,TP 7.9 g/dl (6.4-8.2); TSH 0.756 uIU/mL (0.358-3.74)
[2024-03-08] MEDS ORDERED: Sodium Chloride 0.9% 10 ML Syringe FLUSH PRN (12:06)
[2024-03-08 12:37] LABS: CORONAVIRUS COVID-19 NAA NEGATIVE (NEGATIVE); INFLUENZA A NAA NEGATIVE (NEGATIVE); RESPIRATORY SYNCYTIAL VIR NAA NEGATIVE (NEGATIVE)
[2024-03-08 13:12] LABS: INR 1.12; PROTHROMBIN TIME 11.8 SECONDS (9.7-12.0)
== END 2024-03-08 18:00 ==
LOC: JD.ED 09:59
DX: T43.212A Poisoning by selective serotonin and norepinephrine reuptake inhibitors, intentional self-harm, initial encounter (principal); T43.592A Poisoning by other antipsychotics and neuroleptics, intentional self-harm, initial encounter; F32.9 Major depressive disorder, single episode, unspecified; J45.909 Unspecified asthma, uncomplicated; Z79.899 Other long term (current) drug therapy; Z88.5 Allergy status to narcotic agent
CPT/HCPCS: 0241U; 36415; 80053; 80143; 80179; 80306; 80307; 81001; 82550; 83605; 83735; 84443; 84703; 85025; 85610; 93005; 99285